=== PATIENT | female | born 1955 | race African-American/Black ===

== ENCOUNTER 2024-06-12 16:06 | Emergency (ER) | payer MEDICAID, MEDICARE ==
[~2024-06-12] VITALS: Ht 162.6 cm; Wt 92.2 kg
[2024-06-12 16:35] VITALS: BP 209/105
[2024-06-12] MEDS ORDERED: PRED20TA PO (19:26)
[2024-06-12 20:05] VITALS: PULSE 88; RESP 18; TEMP 98.6; O2SAT 98
== END 2024-06-12 20:06 | disposition home or self-care (01) ==
LOC: ER 16:06
DX: M17.11 Unilateral primary osteoarthritis, right knee (principal); M25.461 Effusion, right knee
CPT/HCPCS: 73562; 93970; 93971; 99284